=== PATIENT | male | born 1965 | race African-American/Black ===

== ENCOUNTER 2016-10-26 17:45 | Emergency (ER) | payer BC ==
--- NOTE | ~2016-10-26 | CR229 ---
[facility] A Service of [facility] RADIOLOGY TEXT RESULTS PATIENT: GRABIEL ROBERTS LOCATION: SED : 65 UNIT #: [id number] AGE: [address]: Estevan Tanner MD SEX: M ORDER DR: [id number] [place] [id number] E MR#: [id number] Acc #: [id number] NAME: GRABIEL ROBERTS : 1965 SEX: M STUDY DATE/TIME: 10/26/2016 18:27 UNIT: SED ROOM: STUDY DESCRIPTION: CR Shoulder Min 2 View Lt Attending Physician: Estevan Tanner M.D. Ordering Physician: Estevan Tanner M.D. Primary Care Physician: Carlyle Hardwick M.D. MEDICAL IMAGING REPORT This report is preliminary unless electronic signature is present. EXAM Left shoulder, 3 views COMPARISON Two views of the chest dated February 20, 2016 and radiographs of the left shoulder dated December 02, 2008. 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 FINDINGS Bulky degenerative facet hypertrophy is seen bilaterally at multiple levels of the lower cervical spine. There is also uncinate hypertrophy at multiple levels of the lower cervical spine. There are diffuse marginal osteophytes of the thoracic spine. Bones are anatomically aligned. No evidence of acute fracture or significant degenerative change at the left shoulder. IMPRESSION 1. No evidence of acute fracture, dislocation or significant degenerative change at the left shoulder. 2. Bulky degenerative facet disease and uncinate hypertrophy seen bilaterally in the lower cervical spine. This raises the possibility of referred pain, possibly radiculopathy from the neck. Dictated by... Rashid Landry M.D. THIS IS AN ELECTRONICALLY VERIFIED REPORT Rashid Landry M.D. at 10/31/2016 8:11 PM [facility] A Service of [facility] RADIOLOGY TEXT RESULTS PATIENT: GRABIEL ROBERTS LOCATION: SED : 65 UNIT #: [id number] AGE: [address]: Estevan Tanner MD SEX: M ORDER DR: TD: 10/26/2016 23:51 JOB #: [id number] MEDICAL IMAGING REPORT Page 1 of 1
[~2016-10-26 17:45] MED LIST: ALTACE10 M1 PO; ALTACE10 M2 PO; ASPIRIN81 M1 PO; ASPIRIN81 M2 PO; COREG PO; HYDROCODON-ACE1 EAC9 PO; OMEPRAZOLE40 MG PO; [UNRECOGNIZED DRUG - REMARK]
[2016-10-26] MEDS ORDERED: COREG (17:51)
[2016-10-26] MEDS ORDERED: ALTACE (17:52)
[2016-10-26] MEDS ORDERED: LIPITOR (17:52)
== END 2016-10-26 19:01 | disposition home or self-care (01) ==
LOC: SED 17:45
DX: S46.912A Strain of unspecified muscle, fascia and tendon at shoulder and upper arm level, left arm, initial encounter (principal); S33.5XXA Sprain of ligaments of lumbar spine, initial encounter; F17.200 Nicotine dependence, unspecified, uncomplicated; E78.5 Hyperlipidemia, unspecified; E11.9 Type 2 diabetes mellitus without complications; X58.XXXA Exposure to other specified factors, initial encounter; Y92.009 Unspecified place in unspecified non-institutional (private) residence as the place of occurrence of the external cause
CPT/HCPCS: 73030; 99283